=== PATIENT | male | born 1970 | race African-American/Black ===

== ENCOUNTER 2017-02-07 14:02 | Inpatient (IN) | payer OTHER ==
[~2017-02-07] VITALS: Ht 185.4 cm; Wt 68.0 kg
[~2017-02-07 14:02] MED LIST: DIPH25CA83 PO; DOCU-138 PO; HYDR2TAB4 PO; METR500T4 PO; MYL30 PO; ONDA4TAB5 PO; PROT40 PO; ZOLP5TAB2 PO; potassium chloride PO
[2017-02-07 15:58] LABS: CLARITY URINE CLEAR (CLEAR); COLOR URINE YELLOW (YELLOW); GLUCOSE URINE NEGATIVE (NEGATIVE); KETONES URINE NEGATIVE (NEGATIVE); LEUKOCYTE ESTERASE URINE NEGATIVE (NEGATIVE); NITRITE URINE NEGATIVE (NEGATIVE); OCCULT BLOOD URINE 2+ (NEGATIVE); PH URINE 5.5 (4.5-8.0); PROTEIN URINE 1+ (NEGATIVE); SPECIFIC GRAVITY URINE 1.018 (1.005-1.030); UROBILINOGEN URINE 0.2 E.U./dL (0.2-1.0)
[2017-02-07 16:00] LABS: MEAN CORPUSCULAR HEMOGLOBIN 26.1 pg (28.0-32.0); MEAN CORPUSCULAR VOLUME 80.4 fL (80.0-94.0); MEAN PLATELET VOLUME 9.3 fl (7.4-10.4); PLATELET 194 x1000/uL (130-400); RED BLOOD CELL COUNT 4.23 mill/uL (4.7-6.1); RED CELL DISTRIBUTION WIDTH 15.3 % (11.6-14.6)
[2017-02-07 16:04] LABS: CHLORIDE 96 mEq/L (98-107)
[2017-02-07] MEDS ORDERED: MORPHINE SULFATE 4 MG/ML CPJ (NOT FOR IM USE) IV STA (16:07)
[2017-02-07] MEDS ORDERED: ONDANSETRON HCL 4MG/2ML VIAL IV STA (16:07)
[2017-02-07 16:08] LABS: INR 1.1; PARTIAL THROMBOPLASTIN TIME 27.8 sec (23.4-31.0); PROTHROMBIN TIME 11.4 sec (9.4-11.6)
[2017-02-07 16:09] LABS: CARBON DIOXIDE 34 mEq/L (21-32)
[2017-02-07 16:13] LABS: *AMPHETAMINES SCREEN URINE NEGATIVE (NEGATIVE); *BARBITURATES SCREEN URINE NEGATIVE (NEGATIVE); *BENZODIAZEPINES SCREEN URINE NEGATIVE (NEGATIVE); *COCAINE SCREEN URINE NEGATIVE (NEGATIVE); CANNABINOID URINE SCREEN PRESUMTIVE POSITIVE (NEGATIVE); METHADONE URINE SCREEN NEGATIVE (NEGATIVE); OPIATES URINE SCREEN PRESUMTIVE POSITIVE (NEGATIVE); PHENCYCLIDINE URINE SCREEN NEGATIVE (NEGATIVE)
[2017-02-07] MEDS ORDERED: PIPERACILLIN/TAZ 3.375G PREMIX 50 ML IV ONE (16:15)
[2017-02-07] MEDS ORDERED: SODIUM CHLORIDE 0.9% 1000ML BAG (SEPSIS BOLUS) IV ONE (16:15)
[2017-02-07 16:16] LABS: TROPONIN I < 0.02 ng/mL (0.00-0.04)
[2017-02-07] MEDS ORDERED: FENTANYL CITRATE/PF 50MCG/ML 2ML VIAL IV ONE (16:30)
[2017-02-07 16:49] LABS: PLATELET ESTIMATE NORMAL
[2017-02-07] MEDS ORDERED: KCL 20MEQ/100ML PREMIX 100 ML IV ONE (17:30)
[2017-02-07] MEDS ORDERED: IBUPROFEN 600MG TABLET PO ONE (21:45)
[2017-02-07 22:05] VITALS: BP 98/60
[2017-02-08] VITALS: BP 100/56
[2017-02-08] MEDS ORDERED: IPRATROPIUM/ALBUTEROL 0.5-3(2.5)MG/3ML NEB INH PRN (00:30)
[2017-02-08] MEDS ORDERED: ONDANSETRON HCL 4MG/2ML VIAL IV PRN (00:30)
[2017-02-08] MEDS ORDERED: ACETAMINOPHEN 325MG TABLET PO PRN (00:30)
[2017-02-08] MEDS ORDERED: DIPHENHYDRAMINE 50MG/ML VIAL IV PRN (00:30)
[2017-02-08] MEDS ORDERED: SODIUM CHLORIDE 0.9% 1,000 ML IV SCH (01:30)
[2017-02-08] MEDS: HYDROMORPHONE HCL/PF 2MG/ML CPJ IV PRN ×6 (01:37→22:47)
[2017-02-08] MEDS: PIPERACILLIN/TAZ 3.375G PREMIX 50 ML IV SCH ×3 (03:26→22:26)
[2017-02-08 04:00] VITALS: BP 103/62
[2017-02-08] MEDS ORDERED: SODIUM CHLORIDE 0.9% 1000ML BAG (SEPSIS BOLUS) IV ONE (07:00)
[2017-02-08] MEDS ORDERED: SODIUM CHLORIDE 0.9% 500 ML IV ONE (07:00)
[2017-02-08 08:15] VITALS: BP 92/48
[2017-02-08] MEDS: METRONIDAZOLE 500 MG PREMIX 100 ML IV SCH ×2 (09:42→17:07)
[2017-02-08] MEDS: PANTOPRAZOLE SODIUM 40 MG/VIAL IV SCH (09:42)
[2017-02-08] MEDS: SODIUM CHLORIDE 0.9% 1,000 ML IV SCH ×2 (11:30→17:08)
[2017-02-08 12:49] VITALS: BP 90/55
[2017-02-08] MEDS: LEVOFLOXACIN 500MG PREMIX 100 ML IV SCH (14:18)
[2017-02-08] MEDS: DILTIAZEM HCL 30MG TABLET PO SCH ×2 (14:26→22:28)
[2017-02-08 16:47] VITALS: BP 98/64
[2017-02-08 20:00] VITALS: BP 105/67
[2017-02-09] VITALS: BP 106/58
[2017-02-09] MEDS: METRONIDAZOLE 500 MG PREMIX 100 ML IV SCH ×2 (01:49→11:06)
[2017-02-09] MEDS: HYDROMORPHONE HCL/PF 2MG/ML CPJ IV PRN ×5 (02:48→21:04)
[2017-02-09] MEDS: PIPERACILLIN/TAZ 3.375G PREMIX 50 ML IV SCH ×3 (02:48→13:37)
[2017-02-09 04:00] VITALS: BP 101/57
[2017-02-09 06:12] LABS: HEMATOCRIT. 27.3 % (42.0-52.0); HEMOGLOBIN. 8.8 g/dL (14.0-18.0); MEAN CORPUSCULAR HEMOGLOBIN 26.3 pg (28.0-32.0); MEAN CORPUSCULAR VOLUME 81.4 fL (80.0-94.0); MEAN PLATELET VOLUME 10.8 fl (7.4-10.4); PLATELET 118 x1000/uL (130-400); RED BLOOD CELL COUNT 3.35 mill/uL (4.7-6.1)
[2017-02-09] MEDS: DILTIAZEM HCL 30MG TABLET PO SCH ×3 (07:15→22:18)
[2017-02-09] MEDS: SODIUM CHLORIDE 0.9% 1,000 ML IV SCH ×3 (07:16→22:19)
[2017-02-09] MEDS: PANTOPRAZOLE SODIUM 40 MG/VIAL IV SCH (08:36)
[2017-02-09 09:03] VITALS: BP 98/59
[2017-02-09] MEDS: LEVOFLOXACIN 500MG PREMIX 100 ML IV SCH (09:28)
[2017-02-09] MEDS ORDERED: POTASSIUM CHLORIDE INJ 60 MEQ in DEXT 5% WATER 500 ML IV NR (09:30)
[2017-02-09 12:05] VITALS: BP 91/60
[2017-02-09 13:23] LABS: PLATELET ESTIMATE DECREASED
[2017-02-09] MEDS ORDERED: VANCOMYCIN 1500MG in DEXTROSE 5% WATER 250ML IV SCH (14:00)
[2017-02-09 16:32] VITALS: BP 98/62
[2017-02-09] MEDS ORDERED: POTASSIUM CHLORIDE 20MEQ TABLET SR PO NR (18:00)
[2017-02-09] MEDS: MEROPENEM 500 MG in SODIUM CHLORIDE 0.9% 50 ML IV SCH (18:38)
[2017-02-09 20:00] VITALS: BP 111/65
[2017-02-10] VITALS: BP 105/64
[2017-02-10] MEDS: HYDROMORPHONE HCL/PF 2MG/ML CPJ IV PRN ×6 (01:18→21:16)
[2017-02-10] MEDS: MEROPENEM 500 MG in SODIUM CHLORIDE 0.9% 50 ML IV SCH ×3 (02:21→17:19)
[2017-02-10 04:00] VITALS: BP 99/57
[2017-02-10] MEDS: SODIUM CHLORIDE 0.9% 1,000 ML IV SCH ×2 (05:07→15:15)
[2017-02-10] MEDS: DILTIAZEM HCL 30MG TABLET PO SCH (06:00)
[2017-02-10] MEDS ORDERED: VANCOMYCIN 1250MG in DEXTROSE 5% WATER 250ML IV SCH (06:00)
[2017-02-10 06:23] LABS: HEMATOCRIT. 26.4 % (42.0-52.0); HEMOGLOBIN. 8.5 g/dL (14.0-18.0); MEAN CORPUSCULAR HEMOGLOBIN 26.1 pg (28.0-32.0); MEAN CORPUSCULAR VOLUME 81.1 fL (80.0-94.0); MEAN PLATELET VOLUME 10.9 fl (7.4-10.4); PLATELET 133 x1000/uL (130-400); RED BLOOD CELL COUNT 3.25 mill/uL (4.7-6.1); RED CELL DISTRIBUTION WIDTH 15.1 % (11.6-14.6)
[2017-02-10 06:25] LABS: CARBON DIOXIDE 26 mEq/L (21-32); CHLORIDE 106 mEq/L (98-107)
[2017-02-10 07:49] VITALS: BP 87/32
[2017-02-10] MEDS: FAMOTIDINE 20MG/2ML VIAL IV SCH (09:17)
[2017-02-10 12:00] VITALS: BP 89/52
[2017-02-10 12:45] LABS: PLATELET ESTIMATE NORMAL
[2017-02-10] MEDS ORDERED: POTASSIUM CHLORIDE 20MEQ TABLET SR PO NR (13:30)
[2017-02-10 20:00] VITALS: BP 91/51
[2017-02-11] VITALS: BP 112/59
[2017-02-11] MEDS: SODIUM CHLORIDE 0.9% 1,000 ML IV SCH (00:01)
[2017-02-11] MEDS: MEROPENEM 500 MG in SODIUM CHLORIDE 0.9% 50 ML IV SCH ×3 (01:27→17:37)
[2017-02-11] MEDS: HYDROMORPHONE HCL/PF 2MG/ML CPJ IV PRN ×6 (01:27→23:12)
[2017-02-11 04:00] VITALS: BP 91/49
[2017-02-11 06:34] LABS: CARBON DIOXIDE 27 mEq/L (21-32); CHLORIDE 112 mEq/L (98-107)
[2017-02-11 06:34] LABS: HEMOGLOBIN. 8.4 g/dL (14.0-18.0); MEAN CORPUSCULAR HEMOGLOBIN 26.1 pg (28.0-32.0); MEAN CORPUSCULAR VOLUME 81.2 fL (80.0-94.0); PLATELET 197 x1000/uL (130-400); RED CELL DISTRIBUTION WIDTH 15.4 % (11.6-14.6)
[2017-02-11 08:00] VITALS: BP 101/61
[2017-02-11] MEDS: FAMOTIDINE 20MG/2ML VIAL IV SCH ×2 (09:21→20:19)
[2017-02-11 12:00] VITALS: BP 100/51
[2017-02-11 13:37] LABS: PLATELET ESTIMATE NORMAL
[2017-02-11] MEDS: SODIUM CHL 0.45% + KCL 20MEQ/L 1,000 ML IV SCH (13:46)
[2017-02-11 16:04] VITALS: BP 108/73
[2017-02-11 20:00] VITALS: BP 107/80
[2017-02-12] VITALS: BP 103/63
[2017-02-12] MEDS: MEROPENEM 500 MG in SODIUM CHLORIDE 0.9% 50 ML IV SCH ×3 (01:00→17:50)
[2017-02-12] MEDS: HYDROMORPHONE HCL/PF 2MG/ML CPJ IV PRN ×6 (03:04→22:31)
[2017-02-12] MEDS: SODIUM CHL 0.45% + KCL 20MEQ/L 1,000 ML IV SCH (03:04)
[2017-02-12 04:00] VITALS: BP 106/68
[2017-02-12 06:45] LABS: BASOPHILS % 0.8 % (0.0-2.0); EOSINOPHILS % 1.8 % (0.0-5.0); HEMATOCRIT. 25.9 % (42.0-52.0); HEMOGLOBIN. 8.4 g/dL (14.0-18.0); LYMPHOCYTES % 33.4 % (20.0-50.0); MEAN CORPUSCULAR HEMOGLOBIN 26.3 pg (28.0-32.0); MEAN PLATELET VOLUME 9.5 fl (7.4-10.4); MONOCYTES % 10.8 % (2.0-8.0); NEUTROPHILS % 53.2 % (40.0-76.0); PLATELET 227 x1000/uL (130-400); RED CELL DISTRIBUTION WIDTH 15.1 % (11.6-14.6)
[2017-02-12 07:00] LABS: CARBON DIOXIDE 24 mEq/L (21-32); CHLORIDE 114 mEq/L (98-107)
[2017-02-12] MEDS: FAMOTIDINE 20MG/2ML VIAL IV SCH ×2 (10:31→21:15)
[2017-02-12 11:54] VITALS: BP 96/51
[2017-02-12 14:20] VITALS: BP 106/61
[2017-02-12 18:37] VITALS: BP 108/70
[2017-02-12 19:36] VITALS: BP 119/75
[2017-02-13 00:35] VITALS: BP 109/67
[2017-02-13] MEDS: HYDROMORPHONE HCL/PF 2MG/ML CPJ IV PRN ×3 (02:59→10:48)
[2017-02-13] MEDS: MEROPENEM 500 MG in SODIUM CHLORIDE 0.9% 50 ML IV SCH ×2 (02:59→09:35)
[2017-02-13 06:52] LABS: EOSINOPHILS % 2.1 % (0.0-5.0); HEMATOCRIT. 27.3 % (42.0-52.0); HEMOGLOBIN. 8.7 g/dL (14.0-18.0); LYMPHOCYTES % 38.8 % (20.0-50.0); MEAN CORPUSCULAR HEMOGLOBIN 25.8 pg (28.0-32.0); MEAN CORPUSCULAR VOLUME 80.8 fL (80.0-94.0); MONOCYTES % 10.3 % (2.0-8.0); NEUTROPHILS % 47.8 % (40.0-76.0); PLATELET 268 x1000/uL (130-400); RED BLOOD CELL COUNT 3.37 mill/uL (4.7-6.1); RED CELL DISTRIBUTION WIDTH 15.3 % (11.6-14.6)
[2017-02-13 07:25] VITALS: BP 122/74
[2017-02-13 07:46] LABS: CARBON DIOXIDE 23 mEq/L (21-32); CHLORIDE 113 mEq/L (98-107)
[2017-02-13] MEDS ORDERED: LIDOCAINE HCL 1% 20ML VIAL (Pyxis) INJ ONE (08:25)
[2017-02-13] MEDS ORDERED: SODIUM BICARBONATE 4% (2.4MEQ) 5ML VIAL IV ONE (08:26)
[2017-02-13] MEDS: FAMOTIDINE 20MG/2ML VIAL IV SCH (09:38)
[2017-02-13 11:05] VITALS: BP 107/60
[2017-02-13 15:50] VITALS: BP 107/60
== END 2017-02-13 16:40 | disposition home health service (06) | DRG 720 ==
LOC: ER 14:02 → EDBEDREQ 16:13 → 6WST 17:31 → EDBEDREQ 17:34 → ENRESERV 20:31
PROVIDERS: ADMIT Internal Medicine; ATTEND Internal Medicine
PROC: 02HV33Z Insertion of Infusion Device into Superior Vena Cava, Percutaneous Approach (ICD-10-PCS; principal; 2017-02-13)
PROC: B548ZZA Ultrasonography of Superior Vena Cava, Guidance (ICD-10-PCS; 2017-02-13)
PROC: B5181ZA Fluoroscopy of Superior Vena Cava using Low Osmolar Contrast, Guidance (ICD-10-PCS; 2017-02-13)
DX: A41.9 Sepsis, unspecified organism (principal); N17.0 Acute kidney failure with tubular necrosis; E43 Unspecified severe protein-calorie malnutrition; E87.0 Hyperosmolality and hypernatremia; E11.22 Type 2 diabetes mellitus with diabetic chronic kidney disease; F11.20 Opioid dependence, uncomplicated; E87.1 Hypo-osmolality and hyponatremia; E86.0 Dehydration; I47.1 Supraventricular tachycardia; E87.6 Hypokalemia; D63.8 Anemia in other chronic diseases classified elsewhere; G89.4 Chronic pain syndrome; J98.11 Atelectasis; K52.9 Noninfective gastroenteritis and colitis, unspecified; N18.9 Chronic kidney disease, unspecified; Z96.641 Presence of right artificial hip joint; Z93.3 Colostomy status; I25.2 Old myocardial infarction; Z86.711 Personal history of pulmonary embolism; Z86.73 Personal history of transient ischemic attack (TIA), and cerebral infarction without residual deficits; Z87.891 Personal history of nicotine dependence; Z90.49 Acquired absence of other specified parts of digestive tract; Z68.1 Body mass index [BMI] 19.9 or less, adult; Z91.041 Radiographic dye allergy status; Z79.899 Other long term (current) drug therapy
CPT/HCPCS: 36415; 36569; 71010; 74176; 76937; 77001; 80048; 80053; 80076; 80305; 81001; 83605; 83690; 83735; 83880; 84484; 85025; 85610; 85730; 86850; 86900; 87040; 87077; 87086; 87186; 87493; 93005; 93306; 96361; 96365; 96366; 96367; 96375; 99291; C1725; C1893; C9113; J1170; J1200; J1956; J2185; J2405; J2543; J3010; J3370; J3480; J3490; J7030; J7050; J7060

== ENCOUNTER 2017-06-14 17:47 | Emergency (ER) | payer OTHER ==
[~2017-06-14] VITALS: Ht 185.4 cm; Wt 72.0 kg
[2017-06-14 17:58] VITALS: BP 131/75
== END 2017-06-14 19:08 | disposition home or self-care (01) ==
LOC: ER 18:34
DX: T82.898A Other specified complication of vascular prosthetic devices, implants and grafts, initial encounter (principal); F12.10 Cannabis abuse, uncomplicated; Z96.649 Presence of unspecified artificial hip joint; Z90.49 Acquired absence of other specified parts of digestive tract; Z93.3 Colostomy status; Z98.890 Other specified postprocedural states; Z91.018 Allergy to other foods; Y92.89 Other specified places as the place of occurrence of the external cause
CPT/HCPCS: 99281

== ENCOUNTER 2018-02-05 11:00 | Emergency (ER) | payer OTHER ==
[~2018-02-05] VITALS: Ht 185.4 cm; Wt 82.0 kg
[2018-02-05 13:05] LABS: CLARITY URINE CLEAR (CLEAR); COLOR URINE YELLOW (YELLOW); KETONES URINE TRACE (NEGATIVE); LEUKOCYTE ESTERASE URINE TRACE (NEGATIVE); NITRITE URINE NEGATIVE (NEGATIVE); OCCULT BLOOD URINE 2+ (NEGATIVE); PH URINE 6.5 (4.5-8.0); PROTEIN URINE 2+ (NEGATIVE); SPECIFIC GRAVITY URINE 1.021 (1.005-1.030); UROBILINOGEN URINE 0.2 E.U./dL (0.2-1.0)
[2018-02-05 13:36] LABS: BASOPHILS % 0.9 % (0.0-2.0); HEMATOCRIT. 35.5 % (42.0-52.0); LYMPHOCYTES % 30.8 % (20.0-50.0); MEAN CORPUSCULAR HEMOGLOBIN 27.2 pg (28.0-32.0); MEAN CORPUSCULAR VOLUME 80.1 fL (80.0-94.0); MEAN PLATELET VOLUME 8.3 fl (7.4-10.4); MONOCYTES % 7.3 % (2.0-8.0); PLATELET 309 x1000/uL (130-400); RED BLOOD CELL COUNT 4.43 mill/uL (4.7-6.1)
[2018-02-05 13:41] LABS: CHLORIDE 102 mEq/L (98-107)
[2018-02-05 14:51] VITALS: BP 129/80
== END 2018-02-05 14:55 | disposition home or self-care (01) ==
LOC: ER 13:52
DX: R31.9 Hematuria, unspecified (principal); N39.0 Urinary tract infection, site not specified; F12.10 Cannabis abuse, uncomplicated; Z90.49 Acquired absence of other specified parts of digestive tract; Z98.890 Other specified postprocedural states; Z96.641 Presence of right artificial hip joint; Z88.9 Allergy status to unspecified drugs, medicaments and biological substances; Z91.018 Allergy to other foods; Z79.899 Other long term (current) drug therapy
CPT/HCPCS: 36415; 80053; 81003; 83690; 85025; 85610; 99284

== ENCOUNTER 2018-09-03 16:16 | Inpatient (IN) | payer MEDICAID, OTHER ==
[~2018-09-03] VITALS: Ht 185.4 cm; Wt 88.9 kg
[~2018-09-03 16:16] MED LIST changes: +METR-218 PO; -METR500T4 PO
[2018-09-03] MEDS ORDERED: SODIUM CHLORIDE 0.9% 1,000 ML IV ONE ×2 (17:50→20:00)
[2018-09-03 18:34] LABS: BASOPHILS % 0.6 % (0.0-2.0); EOSINOPHILS % 0.8 % (0.0-5.0); HEMATOCRIT. 32.5 % (42.0-52.0); HEMOGLOBIN. 10.5 g/dL (14.0-18.0); LYMPHOCYTES % 25.4 % (20.0-50.0); MEAN CORPUSCULAR HEMOGLOBIN 25.2 pg (28.0-32.0); MEAN CORPUSCULAR VOLUME 77.7 fL (80.0-94.0); MEAN PLATELET VOLUME 7.8 fl (7.4-10.4); MONOCYTES % 6.9 % (2.0-8.0); NEUTROPHILS % 66.3 % (40.0-76.0); PLATELET 277 x1000/uL (130-400); RED BLOOD CELL COUNT 4.19 mill/uL (4.7-6.1)
[2018-09-03 18:42] LABS: CHLORIDE 106 mEq/L (98-107); PROTHROMBIN TIME 10.4 sec (9.6-11.0)
[2018-09-03 18:51] LABS: CLARITY URINE CLOUDY (CLEAR); COLOR URINE DARK YELLOW (YELLOW); KETONES URINE TRACE (NEGATIVE); LEUKOCYTE ESTERASE URINE TRACE (NEGATIVE); NITRITE URINE NEGATIVE (NEGATIVE); OCCULT BLOOD URINE 3+ (NEGATIVE); PROTEIN URINE 3+ (NEGATIVE); SPECIFIC GRAVITY URINE 1.019 (1.005-1.030)
[2018-09-03] MEDS ORDERED: METRONIDAZOLE 500 MG PREMIX 100 ML IV ONE (20:00)
[2018-09-03] MEDS ORDERED: MORPHINE SULFATE 4 MG/ML CPJ (NOT FOR IM USE) IV ONE (20:00)
[2018-09-03] MEDS ORDERED: CEFTRIAXONE 1 G PREMIX 50 ML IV ONE (20:00)
[2018-09-03 22:00] VITALS: BP 125/80
[2018-09-03 22:30] VITALS: BP 125/80
[2018-09-03] MEDS ORDERED: ONDANSETRON HCL 4MG/2ML INJ IV PRN (23:30)
[2018-09-04] VITALS: BP 125/80
[2018-09-04] MEDS: MORPHINE SULFATE 4 MG/ML CPJ (NOT FOR IM USE) IV PRN ×6 (00:31→22:20)
[2018-09-04] MEDS: DEXT 5%/0.45% NACL KCL 20MEQ/L 1,000 ML IV SCH ×2 (03:10→22:08)
[2018-09-04 04:00] VITALS: BP 103/59
[2018-09-04 08:00] VITALS: BP 111/73
[2018-09-04 12:00] VITALS: BP 111/70
[2018-09-04 16:00] VITALS: BP 112/69
[2018-09-04 18:26] LABS: PHOSPHORUS 3.5 mg/dL (2.5-4.9)
[2018-09-04 20:00] VITALS: BP 133/85
[2018-09-04] MEDS ORDERED: CEFTRIAXONE 1 G PREMIX 50 ML IV SCH (20:00)
[2018-09-05] VITALS: BP 114/73
[2018-09-05] MEDS: MORPHINE SULFATE 4 MG/ML CPJ (NOT FOR IM USE) IV PRN ×3 (03:11→15:49)
[2018-09-05 06:00] VITALS: BP 122/74
[2018-09-05 06:53] LABS: BASOPHILS % 0.4 % (0.0-2.0); HEMATOCRIT. 31.8 % (42.0-52.0); HEMOGLOBIN. 10.3 g/dL (14.0-18.0); LYMPHOCYTES % 28.3 % (20.0-50.0); MEAN CORPUSCULAR HEMOGLOBIN 25.1 pg (28.0-32.0); MEAN CORPUSCULAR VOLUME 77.4 fL (80.0-94.0); MEAN PLATELET VOLUME 7.9 fl (7.4-10.4); NEUTROPHILS % 56.3 % (40.0-76.0); PLATELET 293 x1000/uL (130-400); RED BLOOD CELL COUNT 4.11 mill/uL (4.7-6.1); RED CELL DISTRIBUTION WIDTH 17.6 % (11.6-14.6)
[2018-09-05 07:19] LABS: CHLORIDE 107 mEq/L (98-107)
[2018-09-05] MEDS ORDERED: PANTOPRAZOLE SODIUM 40 MG/VIAL IV SCH (09:00)
[2018-09-05] MEDS ORDERED: LIDOCAINE HCL 1% 20ML VIAL (Pyxis) INJ ONE (10:27)
[2018-09-05 12:00] VITALS: BP 110/72
[2018-09-05 15:55] VITALS: BP 112/76
[2018-09-05 17:54] VITALS: BP 112/76
== END 2018-09-05 18:16 | disposition home or self-care (01) | DRG 720 ==
LOC: ER 16:16 → 6EST 19:46 → EDBEDREQ 20:03 → ENRESERV 20:59
PROVIDERS: ADMIT Internal Medicine; ATTEND Internal Medicine
PROC: 02HV33Z Insertion of Infusion Device into Superior Vena Cava, Percutaneous Approach (ICD-10-PCS; principal; 2018-09-05)
PROC: B5181ZA Fluoroscopy of Superior Vena Cava using Low Osmolar Contrast, Guidance (ICD-10-PCS; 2018-09-05)
PROC: B548ZZA Ultrasonography of Superior Vena Cava, Guidance (ICD-10-PCS; 2018-09-05)
PROC: 02PYX3Z Removal of Infusion Device from Great Vessel, External Approach (ICD-10-PCS; 2018-09-05)
DX: A41.9 Sepsis, unspecified organism (principal); E43 Unspecified severe protein-calorie malnutrition; K63.2 Fistula of intestine; K91.2 Postsurgical malabsorption, not elsewhere classified; T82.898A Other specified complication of vascular prosthetic devices, implants and grafts, initial encounter; E86.0 Dehydration; D50.9 Iron deficiency anemia, unspecified; N39.0 Urinary tract infection, site not specified; Z96.649 Presence of unspecified artificial hip joint; F11.20 Opioid dependence, uncomplicated; K63.89 Other specified diseases of intestine; Y83.8 Other surgical procedures as the cause of abnormal reaction of the patient, or of later complication, without mention of misadventure at the time of the procedure; N43.3 Hydrocele, unspecified; G89.4 Chronic pain syndrome; Z86.711 Personal history of pulmonary embolism; Z86.718 Personal history of other venous thrombosis and embolism; Z90.49 Acquired absence of other specified parts of digestive tract; Z93.3 Colostomy status; Z91.041 Radiographic dye allergy status; Z91.018 Allergy to other foods; Z79.899 Other long term (current) drug therapy; Z87.828 Personal history of other (healed) physical injury and trauma; Z68.25 Body mass index [BMI] 25.0-25.9, adult; Y92.89 Other specified places as the place of occurrence of the external cause
CPT/HCPCS: 36415; 36569; 36573; 74176; 76870; 80048; 83605; 83735; 84100; 86850; 86900; 93970; 93976; 96361; 96365; 96367; 96375; 99285; C1725; C9113; J0696; J2270; J2405; J3490; J7030

== ENCOUNTER 2020-12-08 15:26 | Inpatient (IN) | payer MEDICAID, OTHER ==
[~2020-12-08] VITALS: Ht 185.4 cm; Wt 67.6 kg
[~2020-12-08 15:26] MED LIST changes: +APIX5TAB MT; -DIPH25CA83 PO; -DOCU-138 PO; -HYDR2TAB4 PO; +LIPA1CAP18 MT; -METR-218 PO; -MYL30 PO; -PROT40 PO; -ZOLP5TAB2 PO; -potassium chloride PO
[2020-12-08] MEDS ORDERED: VANCOMYCIN 1 G PREMIX 200 ML IV ONE (19:45)
[2020-12-08] MEDS ORDERED: ACETAMINOPHEN 325MG TABLET PO ONE (19:45)
[2020-12-08] MEDS ORDERED: SODIUM CHLORIDE 0.9% 1000ML BAG (SEPSIS BOLUS) IV ONE (19:45)
[2020-12-08] MEDS ORDERED: PIPERACILLIN/TAZ 3.375G PREMIX 50 ML IV ONE (19:45)
[2020-12-08 20:44] LABS: BASOPHILS % 0.3 % (0.0-2.0); EOSINOPHILS % 0.1 % (0.0-5.0); HEMATOCRIT. 35.8 % (42.0-52.0); HEMOGLOBIN. 11.7 g/dL (14.0-18.0); LYMPHOCYTES % 11.4 % (20.0-50.0); MEAN CORPUSCULAR HEMOGLOBIN 24.4 pg (28.0-32.0); MEAN CORPUSCULAR VOLUME 74.5 fL (80.0-94.0); MEAN PLATELET VOLUME 8.7 fl (7.4-10.4); MONOCYTES % 4.7 % (2.0-8.0); NEUTROPHILS % 83.5 % (40.0-76.0); PLATELET 166 x1000/uL (130-400); RED BLOOD CELL COUNT 4.81 mill/uL (4.7-6.1); RED CELL DISTRIBUTION WIDTH 18.3 % (11.6-14.6)
[2020-12-08 20:48] LABS: CHLORIDE 99 mEq/L (98-107)
[2020-12-08] MEDS ORDERED: METRONIDAZOLE 500 MG PREMIX 100 ML IV ONE (21:30)
[2020-12-08 23:44] LABS: CLARITY URINE CLEAR (CLEAR); COLOR URINE DARK YELLOW (YELLOW); KETONES URINE 1+ (NEGATIVE); LEUKOCYTE ESTERASE URINE TRACE (NEGATIVE); NITRITE URINE NEGATIVE (NEGATIVE); OCCULT BLOOD URINE NEGATIVE (NEGATIVE); PH URINE 5.5 (4.5-8.0); PROTEIN URINE 2+ (NEGATIVE); SPECIFIC GRAVITY URINE 1.024 (1.005-1.030)
[2020-12-09] MEDS ORDERED: NALOXONE HCL 0.4MG/ML VIAL IV PRN (04:15)
[2020-12-09] MEDS: HYDROCODONE/ACETAMINOPHEN 5/325MG TABLET PO PRN ×2 (04:26→08:34)
[2020-12-09] MEDS ORDERED: ACETAMINOPHEN 325MG TABLET PO PRN (08:45)
[2020-12-09] MEDS ORDERED: DIPHENHYDRAMINE 50MG/ML VIAL IV PRN (08:45)
[2020-12-09] MEDS ORDERED: CLONIDINE 0.1MG TABLET PO PRN (08:45)
[2020-12-09] MEDS ORDERED: MORPHINE SULFATE 2 MG/ML CPJ (NOT FOR IM USE) IV PRN (08:45)
[2020-12-09 11:00] VITALS: BP 113/69
[2020-12-09] MEDS ORDERED: HYDR-4009 MT (11:38)
[2020-12-09] MEDS ORDERED: TRAM50TA94 MT (11:38)
[2020-12-09 12:00] VITALS: BP 113/69
[2020-12-09] MEDS: SODIUM CHLORIDE 0.9% 1,000 ML IV SCH (12:38)
[2020-12-09] MEDS: PIPERACILLIN/TAZOBACTAM 3.375 G in DEXTROSE 5% WATER 50 ML IV SCH ×2 (12:38→18:06)
[2020-12-09] MEDS: METRONIDAZOLE 500 MG PREMIX 100 ML IV SCH ×2 (12:39→21:05)
[2020-12-09] MEDS: VANCOMYCIN 1,250 MG in DEXT 5% WATER 250 ML IV SCH (12:43)
[2020-12-09] MEDS: HYDROMORPHONE HCL/PF 2MG/ML CPJ IV PRN ×2 (12:43→18:49)
[2020-12-09 16:00] VITALS: BP 101/61
[2020-12-09 17:58] LABS: FOLIC ACID (FOLATE) SERUM >20 ng/mL ng/mL (>5.38)
[2020-12-09 18:10] LABS: VITAMIN B12 SERUM 596 pg/mL (211-911)
[2020-12-09 18:41] LABS: TOTAL IRON BINDING CAPACITY 348 ug/dL (250-450)
[2020-12-09 18:55] LABS: FERRITIN 80 ng/mL (22-322)
[2020-12-09] MEDS ORDERED: POTASSIUM CHLORIDE 20MEQ TABLET SR PO NR (19:30)
[2020-12-09 20:00] VITALS: BP 114/69
[2020-12-09 22:13] LABS: *COCAINE SCREEN URINE NEGATIVE (NEGATIVE); METHADONE URINE SCREEN NEGATIVE (NEGATIVE)
[2020-12-09 22:14] LABS: *AMPHETAMINES SCREEN URINE NEGATIVE (NEGATIVE); *BARBITURATES SCREEN URINE NEGATIVE (NEGATIVE); *BENZODIAZEPINES SCREEN URINE NEGATIVE (NEGATIVE); CANNABINOID URINE SCREEN PRESUMTIVE POSITIVE (NEGATIVE); OPIATES URINE SCREEN PRESUMTIVE POSITIVE (NEGATIVE); PHENCYCLIDINE URINE SCREEN NEGATIVE (NEGATIVE)
[2020-12-10] VITALS: BP 106/56
[2020-12-10] MEDS: VANCOMYCIN 1,250 MG in DEXT 5% WATER 250 ML IV SCH (01:05)
[2020-12-10] MEDS: HYDROMORPHONE HCL/PF 2MG/ML CPJ IV PRN ×4 (01:06→21:05)
[2020-12-10] MEDS: METRONIDAZOLE 500 MG PREMIX 100 ML IV SCH ×3 (03:17→21:04)
[2020-12-10 04:00] VITALS: BP 113/62
[2020-12-10] MEDS: PIPERACILLIN/TAZOBACTAM 3.375 G in DEXTROSE 5% WATER 50 ML IV SCH ×3 (04:42→20:15)
[2020-12-10 08:00] VITALS: BP 121/68
[2020-12-10 08:03] LABS: HEMATOCRIT. 35.1 % (42.0-52.0); HEMOGLOBIN. 11.3 g/dL (14.0-18.0); MEAN CORPUSCULAR HEMOGLOBIN 24.4 pg (28.0-32.0); MEAN CORPUSCULAR VOLUME 75.8 fL (80.0-94.0); MEAN PLATELET VOLUME 8.7 fl (7.4-10.4); PLATELET 164 x1000/uL (130-400); RED BLOOD CELL COUNT 4.63 mill/uL (4.7-6.1); RED CELL DISTRIBUTION WIDTH 18.8 % (11.6-14.6)
[2020-12-10 08:05] LABS: CHLORIDE 106 mEq/L (98-107)
[2020-12-10 08:12] LABS: LDL CHOLESTEROL 66 mg/dL (5-100)
[2020-12-10 08:13] LABS: HDL CHOLESTEROL 15 mg/dL (40-59)
[2020-12-10 08:26] LABS: HEPATITIS B SURFACE ANTIGEN NEGATIVE
[2020-12-10 08:55] LABS: HEPATITIS A AB IGM NEGATIVE (NEGATIVE)
[2020-12-10 12:00] VITALS: BP 118/71
[2020-12-10] MEDS ORDERED: DIATR MEGLU/DIATRIZOATE SOLN 120ML ONE (13:46)
[2020-12-10 15:19] LABS: PLATELET ESTIMATE NORMAL
[2020-12-10] MEDS: VANCOMYCIN 1 G PREMIX 200 ML IV SCH (15:46)
[2020-12-10 16:00] VITALS: BP 111/70
[2020-12-10 20:00] VITALS: BP 108/78
[2020-12-11] VITALS: BP 115/73
[2020-12-11] MEDS: SODIUM CHLORIDE 0.9% 1,000 ML IV SCH ×3 (02:16→21:27)
[2020-12-11] MEDS: PIPERACILLIN/TAZOBACTAM 3.375 G in DEXTROSE 5% WATER 50 ML IV SCH ×2 (02:16→09:43)
[2020-12-11] MEDS: METRONIDAZOLE 500 MG PREMIX 100 ML IV SCH ×3 (02:17→17:18)
[2020-12-11] MEDS: HYDROMORPHONE HCL/PF 2MG/ML CPJ IV PRN ×4 (03:07→23:42)
[2020-12-11 04:00] VITALS: BP 108/58
[2020-12-11] MEDS: VANCOMYCIN 1 G PREMIX 200 ML IV SCH (05:50)
[2020-12-11 07:23] LABS: HEMOGLOBIN. 10.1 g/dL (14.0-18.0); MEAN CORPUSCULAR HEMOGLOBIN 24.1 pg (28.0-32.0); MEAN CORPUSCULAR VOLUME 74.2 fL (80.0-94.0); MEAN PLATELET VOLUME 8.5 fl (7.4-10.4); PLATELET 170 x1000/uL (130-400); RED BLOOD CELL COUNT 4.18 mill/uL (4.7-6.1); RED CELL DISTRIBUTION WIDTH 18.6 % (11.6-14.6)
[2020-12-11 08:00] VITALS: BP 106/61
[2020-12-11] MEDS ORDERED: POTASSIUM CHLORIDE 20MEQ/PACKET PO SCH (09:30)
[2020-12-11 12:00] VITALS: BP 111/75
[2020-12-11 14:46] LABS: PLATELET ESTIMATE NORMAL
[2020-12-11 16:00] VITALS: BP 113/65
[2020-12-11] MEDS: IRON SUCROSE COMPLEX 100 MG/5 ML ML IV SCH (17:18)
[2020-12-11] MEDS ORDERED: PIPERACILLIN/TAZOBACTAM 2.25 G in DEXTROSE 5% WATER 50 ML IV SCH (18:00)
[2020-12-11 19:02] LABS: CREATINE KINASE 21 IU/L (39-308)
[2020-12-11 20:00] VITALS: BP 105/66
[2020-12-11] MEDS: CEFEPIME 1,000 MG in DEXTROSE 5% WATER 50 ML IV SCH (20:50)
[2020-12-12] VITALS: BP 114/69
[2020-12-12] MEDS: METRONIDAZOLE 500 MG PREMIX 100 ML IV SCH ×3 (02:47→17:09)
[2020-12-12 03:54] VITALS: BP 118/73
[2020-12-12] MEDS: SODIUM CHLORIDE 0.9% 1,000 ML IV SCH ×3 (06:24→23:54)
[2020-12-12 08:00] VITALS: BP 101/63
[2020-12-12 08:06] LABS: HEMATOCRIT. 31.4 % (42.0-52.0); HEMOGLOBIN. 9.8 g/dL (14.0-18.0); MEAN CORPUSCULAR VOLUME 76.7 fL (80.0-94.0); MEAN PLATELET VOLUME 8.4 fl (7.4-10.4); PLATELET 179 x1000/uL (130-400); RED BLOOD CELL COUNT 4.09 mill/uL (4.7-6.1); RED CELL DISTRIBUTION WIDTH 18.6 % (11.6-14.6)
[2020-12-12] MEDS: HYDROMORPHONE HCL/PF 2MG/ML CPJ IV PRN ×3 (09:28→23:52)
[2020-12-12] MEDS: POTASSIUM CHLORIDE 20MEQ TABLET SR PO SCH ×3 (11:45→12:09)
[2020-12-12 12:00] VITALS: BP 106/59
[2020-12-12 16:00] VITALS: BP 116/70
[2020-12-12] MEDS: IRON SUCROSE COMPLEX 100 MG/5 ML ML IV SCH (17:09)
[2020-12-12] MEDS: CEFEPIME 1,000 MG in DEXTROSE 5% WATER 50 ML IV SCH (18:33)
[2020-12-12 20:00] VITALS: BP 119/67
[2020-12-13] VITALS: BP 124/71
[2020-12-13] MEDS: METRONIDAZOLE 500 MG PREMIX 100 ML IV SCH ×3 (02:09→18:02)
[2020-12-13 04:00] VITALS: BP 108/63
[2020-12-13 06:30] LABS: BASOPHILS % 0.6 % (0.0-2.0); EOSINOPHILS % 1.9 % (0.0-5.0); HEMATOCRIT. 31.6 % (42.0-52.0); HEMOGLOBIN. 10.3 g/dL (14.0-18.0); LYMPHOCYTES % 24.3 % (20.0-50.0); MEAN CORPUSCULAR HEMOGLOBIN 24.6 pg (28.0-32.0); MEAN CORPUSCULAR VOLUME 75.7 fL (80.0-94.0); MEAN PLATELET VOLUME 8.3 fl (7.4-10.4); MONOCYTES % 13.8 % (2.0-8.0); NEUTROPHILS % 59.4 % (40.0-76.0); PLATELET 213 x1000/uL (130-400); RED BLOOD CELL COUNT 4.17 mill/uL (4.7-6.1); RED CELL DISTRIBUTION WIDTH 18.6 % (11.6-14.6)
[2020-12-13 08:00] VITALS: BP 112/78
[2020-12-13] MEDS: HYDROMORPHONE HCL/PF 2MG/ML CPJ IV PRN ×3 (08:43→21:54)
[2020-12-13 10:26] LABS: PHOSPHORUS 3.3 mg/dL (2.5-4.9)
[2020-12-13 12:00] VITALS: BP 108/68
[2020-12-13] MEDS: SODIUM CHLORIDE 0.9% 1,000 ML IV SCH (12:50)
[2020-12-13] MEDS: IRON SUCROSE COMPLEX 100 MG/5 ML ML IV SCH (15:40)
[2020-12-13 16:00] VITALS: BP 114/73
[2020-12-13] MEDS: CEFEPIME 1,000 MG in DEXTROSE 5% WATER 50 ML IV SCH (18:02)
[2020-12-13 20:00] VITALS: BP 121/72
[2020-12-13 21:44] LABS: PLATELET ESTIMATE NORMAL
[2020-12-14] VITALS: BP 114/69
[2020-12-14] MEDS: FAT EMULSIONS 500 ML IV SCH
[2020-12-14] MEDS: METRONIDAZOLE 500 MG PREMIX 100 ML IV SCH ×2 (02:07→09:22)
[2020-12-14 04:00] VITALS: BP 122/71
[2020-12-14] MEDS: HYDROMORPHONE HCL/PF 2MG/ML CPJ IV PRN ×3 (04:55→21:12)
[2020-12-14] MEDS: BLOOD SUGAR DIAGNOSTIC STRIP TEST SCH ×4 (06:00→18:00)
[2020-12-14 06:58] LABS: HEMATOCRIT. 34.7 % (42.0-52.0); HEMOGLOBIN. 11.3 g/dL (14.0-18.0); MEAN CORPUSCULAR HEMOGLOBIN 24.3 pg (28.0-32.0); MEAN CORPUSCULAR VOLUME 74.5 fL (80.0-94.0); PLATELET 218 x1000/uL (130-400); RED BLOOD CELL COUNT 4.66 mill/uL (4.7-6.1); RED CELL DISTRIBUTION WIDTH 18.5 % (11.6-14.6)
[2020-12-14 08:00] VITALS: BP 101/60
[2020-12-14] MEDS ORDERED: SODIUM CHLORIDE 0.45% 1,000 ML IV SCH (10:00)
[2020-12-14 16:00] VITALS: BP 105/71
[2020-12-14 20:00] VITALS: BP 105/64
[2020-12-14 20:45] LABS: PLATELET ESTIMATE NORMAL
[2020-12-14] MEDS: TOTAL PARENTERAL NUTRITION 2,000 ML IV SCH ×2 (23:03)
[2020-12-15] VITALS: BP 125/75
[2020-12-15 04:00] VITALS: BP 108/66
[2020-12-15] MEDS: BLOOD SUGAR DIAGNOSTIC STRIP TEST SCH ×5 (06:00→16:52)
[2020-12-15] MEDS: HYDROMORPHONE HCL/PF 2MG/ML CPJ IV PRN ×3 (06:19→20:49)
[2020-12-15 07:30] LABS: BASOPHILS % 0.6 % (0.0-2.0); EOSINOPHILS % 2.8 % (0.0-5.0); HEMATOCRIT. 30.8 % (42.0-52.0); HEMOGLOBIN. 10.1 g/dL (14.0-18.0); LYMPHOCYTES % 19.4 % (20.0-50.0); MEAN CORPUSCULAR HEMOGLOBIN 24.3 pg (28.0-32.0); MEAN CORPUSCULAR VOLUME 74.4 fL (80.0-94.0); MEAN PLATELET VOLUME 8.2 fl (7.4-10.4); MONOCYTES % 11.4 % (2.0-8.0); NEUTROPHILS % 65.8 % (40.0-76.0); PLATELET 226 x1000/uL (130-400); RED BLOOD CELL COUNT 4.15 mill/uL (4.7-6.1); RED CELL DISTRIBUTION WIDTH 18.6 % (11.6-14.6)
[2020-12-15 07:32] LABS: PHOSPHORUS 2.4 mg/dL (2.5-4.9)
[2020-12-15 08:00] VITALS: BP 118/74
[2020-12-15 12:00] VITALS: BP 114/68
[2020-12-15] MEDS ORDERED: POTASSIUM PHOS,M-BASIC-D-BASIC 20 MMOL in DEXT 5% WATER 243.3333 ML IV SCH (13:00)
[2020-12-15] MEDS ORDERED: MAGNESIUM 2 G PREMIX 50 ML IV SCH (13:00)
[2020-12-15 16:00] VITALS: BP 123/83
[2020-12-15 20:00] VITALS: BP 124/79
[2020-12-15] MEDS: ONDANSETRON HCL 4MG/2ML INJ IV PRN (20:49)
[2020-12-15] MEDS: TOTAL PARENTERAL NUTRITION 2,000 ML IV SCH (21:46)
[2020-12-16] VITALS: BP 126/77
[2020-12-16 04:00] VITALS: BP 119/73
[2020-12-16] MEDS: HYDROMORPHONE HCL/PF 2MG/ML CPJ IV PRN ×3 (04:04→17:41)
[2020-12-16] MEDS: BLOOD SUGAR DIAGNOSTIC STRIP TEST SCH ×5 (05:14→23:30)
[2020-12-16 08:00] VITALS: BP 112/68
[2020-12-16 10:49] LABS: HEMATOCRIT. 29.8 % (42.0-52.0); MEAN CORPUSCULAR HEMOGLOBIN 24.9 pg (28.0-32.0); MEAN CORPUSCULAR VOLUME 74.3 fL (80.0-94.0); MEAN PLATELET VOLUME 7.8 fl (7.4-10.4); PLATELET 259 x1000/uL (130-400); RED BLOOD CELL COUNT 4.01 mill/uL (4.7-6.1); RED CELL DISTRIBUTION WIDTH 18.9 % (11.6-14.6)
[2020-12-16] MEDS: ONDANSETRON HCL 4MG/2ML INJ IV PRN ×2 (10:53→17:42)
[2020-12-16 11:15] LABS: PHOSPHORUS 3.2 mg/dL (2.5-4.9)
[2020-12-16 12:00] VITALS: BP 118/73
[2020-12-16 16:00] VITALS: BP 122/76
[2020-12-16 19:28] LABS: PLATELET ESTIMATE NORMAL
[2020-12-16 20:00] VITALS: BP 119/78
[2020-12-16] MEDS: FAT EMULSIONS 500 ML IV SCH (21:36)
[2020-12-16] MEDS: TOTAL PARENTERAL NUTRITION 2,000 ML IV SCH (21:38)
[2020-12-16] MEDS ORDERED: NALOXONE HCL 0.4MG/ML VIAL IV PRN (23:15)
[2020-12-17] VITALS: BP 126/75
[2020-12-17] MEDS: HYDROMORPHONE HCL/PF 2MG/ML CPJ IV PRN ×4 (02:21→23:33)
[2020-12-17] MEDS: ONDANSETRON HCL 4MG/2ML INJ IV PRN ×3 (02:21→17:22)
[2020-12-17 04:00] VITALS: BP 124/79
[2020-12-17] MEDS: BLOOD SUGAR DIAGNOSTIC STRIP TEST SCH ×4 (05:16→23:13)
[2020-12-17 08:00] VITALS: BP 120/77
[2020-12-17 12:00] VITALS: BP 111/68
[2020-12-17 16:00] VITALS: BP 117/76
[2020-12-17 20:00] VITALS: BP 124/68
[2020-12-17] MEDS: TOTAL PARENTERAL NUTRITION 2,000 ML IV SCH (22:05)
[2020-12-18] VITALS: BP 130/71
[2020-12-18 04:00] VITALS: BP 126/76
[2020-12-18] MEDS: HYDROMORPHONE HCL/PF 2MG/ML CPJ IV PRN ×3 (05:45→18:35)
[2020-12-18] MEDS: BLOOD SUGAR DIAGNOSTIC STRIP TEST SCH ×3 (06:00→18:00)
[2020-12-18 07:37] LABS: BASOPHILS % 0.2 % (0.0-2.0); EOSINOPHILS % 1.6 % (0.0-5.0); HEMATOCRIT. 35.5 % (42.0-52.0); HEMOGLOBIN. 11.5 g/dL (14.0-18.0); LYMPHOCYTES % 22.5 % (20.0-50.0); MEAN CORPUSCULAR HEMOGLOBIN 24.2 pg (28.0-32.0); MEAN CORPUSCULAR VOLUME 74.5 fL (80.0-94.0); MEAN PLATELET VOLUME 8.2 fl (7.4-10.4); MONOCYTES % 12.8 % (2.0-8.0); NEUTROPHILS % 62.9 % (40.0-76.0); PLATELET 298 x1000/uL (130-400); RED BLOOD CELL COUNT 4.76 mill/uL (4.7-6.1); RED CELL DISTRIBUTION WIDTH 19.2 % (11.6-14.6)
[2020-12-18 08:00] VITALS: BP 116/72
[2020-12-18 12:00] VITALS: BP 122/68
[2020-12-18 16:00] VITALS: BP 119/88
[2020-12-18 20:00] VITALS: BP 117/72
[2020-12-18] MEDS: TOTAL PARENTERAL NUTRITION 2,000 ML IV SCH (21:01)
[2020-12-19] VITALS: BP 130/71
[2020-12-19] MEDS: HYDROMORPHONE HCL/PF 2MG/ML CPJ IV PRN ×4 (00:50→20:09)
[2020-12-19 04:00] VITALS: BP 126/72
[2020-12-19] MEDS: BLOOD SUGAR DIAGNOSTIC STRIP TEST SCH ×4 (05:18→18:00)
[2020-12-19 07:05] LABS: BASOPHILS % 0.4 % (0.0-2.0); EOSINOPHILS % 2.1 % (0.0-5.0); HEMATOCRIT. 32.1 % (42.0-52.0); HEMOGLOBIN. 10.7 g/dL (14.0-18.0); LYMPHOCYTES % 22.3 % (20.0-50.0); MEAN CORPUSCULAR HEMOGLOBIN 24.5 pg (28.0-32.0); MEAN CORPUSCULAR VOLUME 73.8 fL (80.0-94.0); NEUTROPHILS % 63.2 % (40.0-76.0); PLATELET 315 x1000/uL (130-400); RED BLOOD CELL COUNT 4.34 mill/uL (4.7-6.1); RED CELL DISTRIBUTION WIDTH 18.3 % (11.6-14.6)
[2020-12-19 08:00] VITALS: BP 125/76
[2020-12-19 12:00] VITALS: BP 131/71
[2020-12-19 16:00] VITALS: BP 117/77
[2020-12-19 20:00] VITALS: BP 122/78
[2020-12-19] MEDS: TOTAL PARENTERAL NUTRITION 2,000 ML IV SCH (21:54)
[2020-12-20] VITALS: BP 126/74
[2020-12-20 04:00] VITALS: BP 110/63
[2020-12-20] MEDS: HYDROMORPHONE HCL/PF 2MG/ML CPJ IV PRN ×3 (04:54→22:02)
[2020-12-20] MEDS: BLOOD SUGAR DIAGNOSTIC STRIP TEST SCH ×4 (05:36→17:57)
[2020-12-20 06:59] LABS: BASOPHILS % 0.4 % (0.0-2.0); EOSINOPHILS % 2.5 % (0.0-5.0); HEMATOCRIT. 34.7 % (42.0-52.0); HEMOGLOBIN. 11.2 g/dL (14.0-18.0); LYMPHOCYTES % 24.3 % (20.0-50.0); MEAN CORPUSCULAR HEMOGLOBIN 24.4 pg (28.0-32.0); MEAN CORPUSCULAR VOLUME 75.4 fL (80.0-94.0); MEAN PLATELET VOLUME 8.3 fl (7.4-10.4); MONOCYTES % 11.8 % (2.0-8.0); PLATELET 391 x1000/uL (130-400); RED CELL DISTRIBUTION WIDTH 19.3 % (11.6-14.6)
[2020-12-20 08:00] VITALS: BP 104/69
[2020-12-20 12:00] VITALS: BP 117/72
[2020-12-20] MEDS ORDERED: SODIUM BICARBONATE 8.4% 1 MEQ/ML 50ML SYR IV NR (12:30)
[2020-12-20] MEDS ORDERED: DEXTROSE 50% WATER 50ML SYRINGE IV NR (12:30)
[2020-12-20] MEDS ORDERED: SODIUM POLYSTYRENE SULFONATE 15 G/60 ML BOT PO NR (12:30)
[2020-12-20] MEDS ORDERED: INSULIN REGULAR (HUMULIN R) UD 100 UNITS/ML SYR IV NR (12:30)
[2020-12-20 20:00] VITALS: BP 136/81
[2020-12-20] MEDS: FAT EMULSIONS 500 ML IV SCH (22:54)
[2020-12-20] MEDS: TOTAL PARENTERAL NUTRITION 2,000 ML IV SCH (22:56)
[2020-12-21 04:00] VITALS: BP 114/79
[2020-12-21] MEDS: HYDROMORPHONE HCL/PF 2MG/ML CPJ IV PRN ×2 (05:16→11:23)
[2020-12-21] MEDS: BLOOD SUGAR DIAGNOSTIC STRIP TEST SCH ×3 (05:42→12:00)
[2020-12-21 07:19] LABS: BASOPHILS % 0.4 % (0.0-2.0); EOSINOPHILS % 2.7 % (0.0-5.0); HEMOGLOBIN. 11.8 g/dL (14.0-18.0); LYMPHOCYTES % 25.5 % (20.0-50.0); MEAN CORPUSCULAR HEMOGLOBIN 25.5 pg (28.0-32.0); MEAN PLATELET VOLUME 8.4 fl (7.4-10.4); NEUTROPHILS % 61.4 % (40.0-76.0); PLATELET 390 x1000/uL (130-400); RED BLOOD CELL COUNT 4.61 mill/uL (4.7-6.1); RED CELL DISTRIBUTION WIDTH 18.7 % (11.6-14.6)
[2020-12-21 11:16] VITALS: BP 124/78
[2020-12-21 16:22] VITALS: BP 124/78
== END 2020-12-21 16:58 | disposition home health service (06) | DRG 206 ==
LOC: ER 15:26 → MICUSO 22:05 → 7EST 12-09 09:40
PROVIDERS: ADMIT Internal Medicine; ATTEND Internal Medicine
DX: T82.7XXA Infection and inflammatory reaction due to other cardiac and vascular devices, implants and grafts, initial encounter (principal); N17.0 Acute kidney failure with tubular necrosis; A41.9 Sepsis, unspecified organism; K63.2 Fistula of intestine; K91.2 Postsurgical malabsorption, not elsewhere classified; N17.9 Acute kidney failure, unspecified; T81.40XA Infection following a procedure, unspecified, initial encounter; T81.44XA Sepsis following a procedure, initial encounter; E87.5 Hyperkalemia; I11.9 Hypertensive heart disease without heart failure; K52.9 Noninfective gastroenteritis and colitis, unspecified; J44.9 Chronic obstructive pulmonary disease, unspecified; K76.0 Fatty (change of) liver, not elsewhere classified; Z96.649 Presence of unspecified artificial hip joint; D50.9 Iron deficiency anemia, unspecified; F41.9 Anxiety disorder, unspecified; Y83.8 Other surgical procedures as the cause of abnormal reaction of the patient, or of later complication, without mention of misadventure at the time of the procedure; Z82.49 Family history of ischemic heart disease and other diseases of the circulatory system; Z90.49 Acquired absence of other specified parts of digestive tract; Z93.3 Colostomy status; Z95.828 Presence of other vascular implants and grafts; Z91.041 Radiographic dye allergy status; Z91.018 Allergy to other foods; Z79.899 Other long term (current) drug therapy; Z86.718 Personal history of other venous thrombosis and embolism; Y92.89 Other specified places as the place of occurrence of the external cause; K86.1 Other chronic pancreatitis
CPT/HCPCS: 36415; 71045; 74176; 76770; 80048; 80053; 80061; 80202; 80305; 81003; 82270; 82550; 82575; 82607; 82728; 82746; 82962; 83540; 83550; 83605; 83735; 84100; 84132; 84145; 84443; 84478; 84484; 85025; 85044; 86140; 86705; 86709; 86803; 87045; 87340; 87493; 89055; 93005; 93970; 99285; C1893; J0692; J1170; J1200; J1815; J2405; J2543; J3370; J3475; J3490; J7030; J7040; J7060; Q9963

== ENCOUNTER 2020-12-26 13:40 | Inpatient (IN) | payer OTHER, MEDICAID ==
[~2020-12-26] VITALS: Ht 172.7 cm; Wt 74.8 kg
[~2020-12-26 13:40] MED LIST changes: +HYDR-4009 MT; +TRAM50TA94 MT
[2020-12-26] MEDS ORDERED: SODIUM CHLORIDE 0.9% 1000ML BAG (SEPSIS BOLUS) IV ONE (15:00)
[2020-12-26] MEDS ORDERED: MORPHINE SULFATE 4 MG/ML CPJ (NOT FOR IM USE) IV NR (15:00)
[2020-12-26] MEDS: SODIUM CHLORIDE 0.9% 2,250 ML IV SCH ×2 (15:19→15:20)
[2020-12-26] MEDS ORDERED: HYDROMORPHONE HCL/PF 2MG/ML CPJ IV NR (15:30)
[2020-12-26 15:33] LABS: CLARITY URINE CLOUDY (CLEAR); COLOR URINE DARK YELLOW (YELLOW); KETONES URINE TRACE (NEGATIVE); LEUKOCYTE ESTERASE URINE TRACE (NEGATIVE); NITRITE URINE NEGATIVE (NEGATIVE); OCCULT BLOOD URINE 1+ (NEGATIVE); PH URINE 5.5 (4.5-8.0); PROTEIN URINE 2+ (NEGATIVE); SPECIFIC GRAVITY URINE 1.019 (1.005-1.030)
[2020-12-26 15:35] LABS: HEMATOCRIT. 34.8 % (42.0-52.0); HEMOGLOBIN. 11.3 g/dL (14.0-18.0); MEAN CORPUSCULAR HEMOGLOBIN 24.2 pg (28.0-32.0); MEAN CORPUSCULAR VOLUME 74.4 fL (80.0-94.0); MEAN PLATELET VOLUME 8.6 fl (7.4-10.4); PLATELET 224 x1000/uL (130-400); RED BLOOD CELL COUNT 4.68 mill/uL (4.7-6.1); RED CELL DISTRIBUTION WIDTH 18.3 % (11.6-14.6)
[2020-12-26 15:40] LABS: CHLORIDE 101 mEq/L (98-107)
[2020-12-26 15:43] LABS: INR 1.1; PROTHROMBIN TIME 11.6 sec (9.6-11.0)
[2020-12-26 15:45] LABS: ETHANOL BLOOD < 10 mg/dL
[2020-12-26 15:50] LABS: CREATINE KINASE 26 IU/L (39-308)
[2020-12-26 16:16] LABS: *AMPHETAMINES SCREEN URINE NEGATIVE (NEGATIVE); *BARBITURATES SCREEN URINE NEGATIVE (NEGATIVE); *BENZODIAZEPINES SCREEN URINE NEGATIVE (NEGATIVE)
[2020-12-26 16:17] LABS: *COCAINE SCREEN URINE NEGATIVE (NEGATIVE); CANNABINOID URINE SCREEN PRESUMTIVE POSITIVE (NEGATIVE); METHADONE URINE SCREEN NEGATIVE (NEGATIVE); OPIATES URINE SCREEN PRESUMTIVE POSITIVE (NEGATIVE); PHENCYCLIDINE URINE SCREEN NEGATIVE (NEGATIVE)
[2020-12-26] MEDS ORDERED: METRONIDAZOLE 500 MG PREMIX 100 ML IV ONE (16:45)
[2020-12-26] MEDS ORDERED: KCL 20MEQ/100ML PREMIX 100 ML IV NR (18:30)
[2020-12-26] MEDS: CEFEPIME 1,000 MG in DEXTROSE 5% WATER 50 ML IV SCH (18:37)
[2020-12-26 18:44] LABS: PLATELET ESTIMATE NORMAL
[2020-12-27] MEDS: CEFEPIME 1,000 MG in DEXTROSE 5% WATER 50 ML IV SCH ×3 (05:30→20:56)
[2020-12-27 08:00] VITALS: BP 114/74
[2020-12-27] MEDS ORDERED: HYDROCODONE/ACETAMINOPHEN 5/325MG TABLET PO PRN (10:00)
[2020-12-27] MEDS ORDERED: ONDANSETRON HCL 4MG/2ML INJ IV PRN (11:45)
[2020-12-27] MEDS ORDERED: NALOXONE HCL 0.4MG/ML VIAL IV PRN ×2 (11:45→19:45)
[2020-12-27 12:00] VITALS: BP 126/69
[2020-12-27] MEDS: METRONIDAZOLE 500 MG PREMIX 100 ML IV SCH ×2 (12:31→18:30)
[2020-12-27] MEDS: HYDROCODONE/ACETAMINOPHEN 10/325MG TABLET PO PRN ×2 (12:32→23:02)
[2020-12-27] MEDS: DEXT 5%/0.45% NACL 1000ML 1,000 ML IV SCH ×2 (12:38→20:56)
[2020-12-27 14:47] VITALS: BP 126/69
[2020-12-27 16:00] VITALS: BP 100/65
[2020-12-27 20:00] VITALS: BP 115/75
[2020-12-28] VITALS: BP 118/69
[2020-12-28] MEDS: METRONIDAZOLE 500 MG PREMIX 100 ML IV SCH ×2 (01:21→10:58)
[2020-12-28 04:00] VITALS: BP 112/51
[2020-12-28] MEDS: DEXT 5%/0.45% NACL 1000ML 1,000 ML IV SCH ×2 (05:44→17:09)
[2020-12-28 06:45] LABS: BASOPHILS % 0.6 % (0.0-2.0); EOSINOPHILS % 1.3 % (0.0-5.0); HEMATOCRIT. 28.8 % (42.0-52.0); HEMOGLOBIN. 9.2 g/dL (14.0-18.0); LYMPHOCYTES % 19.2 % (20.0-50.0); MEAN PLATELET VOLUME 9.1 fl (7.4-10.4); MONOCYTES % 13.4 % (2.0-8.0); NEUTROPHILS % 65.5 % (40.0-76.0); PLATELET 187 x1000/uL (130-400); RED BLOOD CELL COUNT 3.84 mill/uL (4.7-6.1); RED CELL DISTRIBUTION WIDTH 18.8 % (11.6-14.6)
[2020-12-28 07:11] LABS: VITAMIN B12 SERUM 802 pg/mL (211-911)
[2020-12-28 07:18] LABS: FOLIC ACID (FOLATE) SERUM > 20.00 ng/mL (>5.38)
[2020-12-28 08:00] VITALS: BP 107/71
[2020-12-28] MEDS ORDERED: PANTOPRAZOLE SODIUM 40 MG/VIAL IV SCH (09:00)
[2020-12-28] MEDS ORDERED: POTASSIUM CHLORIDE 20MEQ TABLET SR PO NR ×2 (09:00→10:15)
[2020-12-28] MEDS ORDERED: POTASSIUM CHLORIDE INJ 40 MEQ in DEXT 5% WATER 250 ML IV NR (09:30)
[2020-12-28] MEDS: CEFEPIME 1,000 MG in DEXTROSE 5% WATER 50 ML IV SCH (09:40)
[2020-12-28 12:00] VITALS: BP 107/73
[2020-12-28] MEDS ORDERED: CIPR-263 MT ×2 (12:19)
[2020-12-28] MEDS ORDERED: METR-167 MT ×2 (12:19)
[2020-12-28 15:56] VITALS: BP 134/75
[2020-12-28 16:00] VITALS: BP_SYST 134; BP_SYST 154; BP_DIAS 75; BP_DIAS 78
== END 2020-12-28 17:50 | disposition home or self-care (01) | DRG 720 ==
LOC: ER 13:40 → MICUSO 17:54 → EDBEDREQSVC 18:07 → EDBEDREQ 18:07 → 8WST 12-27 07:18
PROVIDERS: ADMIT Internal Medicine; ATTEND Internal Medicine
DX: A41.9 Sepsis, unspecified organism (principal); N17.0 Acute kidney failure with tubular necrosis; E43 Unspecified severe protein-calorie malnutrition; K63.2 Fistula of intestine; K91.2 Postsurgical malabsorption, not elsewhere classified; R18.8 Other ascites; J90 Pleural effusion, not elsewhere classified; I11.9 Hypertensive heart disease without heart failure; K76.0 Fatty (change of) liver, not elsewhere classified; E87.1 Hypo-osmolality and hyponatremia; D50.9 Iron deficiency anemia, unspecified; F12.90 Cannabis use, unspecified, uncomplicated; E87.6 Hypokalemia; F41.9 Anxiety disorder, unspecified; M19.90 Unspecified osteoarthritis, unspecified site; M32.9 Systemic lupus erythematosus, unspecified; Z20.822 Contact with and (suspected) exposure to COVID-19; R16.2 Hepatomegaly with splenomegaly, not elsewhere classified; I86.8 Varicose veins of other specified sites; F11.90 Opioid use, unspecified, uncomplicated; Z96.649 Presence of unspecified artificial hip joint; N28.1 Cyst of kidney, acquired; Z76.5 Malingerer [conscious simulation]; Z95.828 Presence of other vascular implants and grafts; Z91.041 Radiographic dye allergy status; Z91.018 Allergy to other foods; Z68.25 Body mass index [BMI] 25.0-25.9, adult; Z90.49 Acquired absence of other specified parts of digestive tract; Z82.49 Family history of ischemic heart disease and other diseases of the circulatory system; Z86.718 Personal history of other venous thrombosis and embolism; E87.8 Other disorders of electrolyte and fluid balance, not elsewhere classified; A04.5 Campylobacter enteritis
CPT/HCPCS: 36415; 71045; 74176; 80048; 80053; 80305; 80320; 81003; 82247; 82248; 82550; 82607; 82728; 82746; 83540; 83550; 83605; 84075; 84145; 84484; 85025; 85044; 86140; 87015; 87045; 87426; 87427; 87449; 89055; 93005; 99291; C1893; C9113; J0692; J1170; J3480; J3490; J7060; G0480

== ENCOUNTER 2022-06-08 18:02 | Emergency (ER) | payer MEDICAID, OTHER ==
[~2022-06-08] VITALS: Ht 185.4 cm; Wt 63.0 kg
[2022-06-08 18:56] VITALS: BP 129/70
[2022-06-08] MEDS ORDERED: IBUPROFEN 600MG TABLET PO ONE (22:30)
== END 2022-06-08 23:00 | disposition home or self-care (01) ==
LOC: ER 18:02
DX: T82.49XA Other complication of vascular dialysis catheter, initial encounter (principal); X58.XXXA Exposure to other specified factors, initial encounter; F41.9 Anxiety disorder, unspecified; K59.00 Constipation, unspecified; I20.9 Angina pectoris, unspecified; Z90.49 Acquired absence of other specified parts of digestive tract; Z79.899 Other long term (current) drug therapy
CPT/HCPCS: 99281

== ENCOUNTER 2022-06-09 08:10 | Emergency (ER) | payer MEDICAID, OTHER ==
[2022-06-09] VITALS (13 sets, daily range): BP systolic 103–114; BP diastolic 58–66
[~2022-06-09] VITALS: Ht 185.4 cm; Wt 63.0 kg
[2022-06-09 11:48] LABS: BASOPHILS % 0.3 % (0.0-2.0); EOSINOPHILS % 1.1 % (0.0-5.0); HEMATOCRIT. 32.7 % (42.0-52.0); HEMOGLOBIN. 10.5 g/dL (14.0-18.0); LYMPHOCYTES % 19.3 % (20.0-50.0); MEAN CORPUSCULAR HEMOGLOBIN 26.4 pg (28.0-32.0); MEAN CORPUSCULAR VOLUME 82.2 fL (80.0-94.0); MEAN PLATELET VOLUME 7.7 fl (7.4-10.4); MONOCYTES % 6.3 % (2.0-8.0); PLATELET 232 x1000/uL (130-400); RED BLOOD CELL COUNT 3.98 mill/uL (4.7-6.1); RED CELL DISTRIBUTION WIDTH 16.2 % (11.6-14.6)
[2022-06-09 12:36] LABS: CHLORIDE 110 mEq/L (98-107)
[2022-06-09] MEDS ORDERED: LIDOCAINE HCL 1% 10 MG/ML 10ML VIAL ONE (12:44)
[2022-06-09] MEDS ORDERED: FENTANYL CITRATE/PF 50MCG/ML 2ML VIAL ONE ×2 (12:44→13:43)
[2022-06-09] MEDS ORDERED: MIDAZOLAM HCL 2 MG/2 ML VIAL ONE (12:44)
[2022-06-09] MEDS ORDERED: CEFAZOLIN 1000MG PREMIX 50 ML IV ONE ×2 (12:44→14:00)
[2022-06-09 12:54] LABS: PARTIAL THROMBOPLASTIN TIME 29.3 sec (23.4-31.0); PROTHROMBIN TIME 11.1 sec (9.6-11.0)
[2022-06-09] MEDS ORDERED: MIDAZOLAM HCL 2 MG/2 ML VIAL IV ONE (14:00)
[2022-06-09] MEDS ORDERED: FENTANYL CITRATE/PF 50MCG/ML 2ML VIAL IV ONE (14:00)
== END 2022-06-09 14:30 | disposition home or self-care (01) ==
LOC: ER 08:17
DX: T82.514A Breakdown (mechanical) of infusion catheter, initial encounter (principal); E87.6 Hypokalemia; Z20.822 Contact with and (suspected) exposure to COVID-19
CPT/HCPCS: 36415; 36558; 36569; 77001; 80053; 85025; 85610; 85730; 87426; 96365; 96375; 99284; C1725; C1751; C1769; C1893; C9803; J0690; J1642; J2250; J3010; J3490; Z7610; 99152; 99153; G0500

== ENCOUNTER 2022-10-26 17:36 | Emergency (ER) | payer OTHER ==
[~2022-10-26] VITALS: Ht 185.4 cm; Wt 64.0 kg
[2022-10-26 17:44] VITALS: BP 117/65
[2022-10-26 18:13] LABS: CLARITY URINE CLEAR (CLEAR); COLOR URINE DARK YELLOW (YELLOW); KETONES URINE TRACE (NEGATIVE); LEUKOCYTE ESTERASE URINE TRACE (NEGATIVE); NITRITE URINE NEGATIVE (NEGATIVE); OCCULT BLOOD URINE 3+ (NEGATIVE); PH URINE 5.5 (4.5-8.0); PROTEIN URINE 2+ (NEGATIVE); SPECIFIC GRAVITY URINE 1.024 (1.005-1.030)
[2022-10-26 20:59] LABS: BASOPHILS % 0.5 % (0.0-2.0); HEMATOCRIT. 36.9 % (42.0-52.0); LYMPHOCYTES % 28.3 % (20.0-50.0); MEAN CORPUSCULAR HEMOGLOBIN 27.1 pg (28.0-32.0); MEAN CORPUSCULAR VOLUME 83.5 fL (80.0-94.0); MEAN PLATELET VOLUME 7.7 fl (7.4-10.4); MONOCYTES % 7.5 % (2.0-8.0); NEUTROPHILS % 61.7 % (40.0-76.0); PLATELET 191 x1000/uL (130-400); RED BLOOD CELL COUNT 4.42 mill/uL (4.7-6.1); RED CELL DISTRIBUTION WIDTH 16.7 % (11.6-14.6)
[2022-10-26 21:08] LABS: CHLORIDE 106 mEq/L (98-107)
== END 2022-10-26 21:39 | disposition home or self-care (01) ==
LOC: ER 17:36
DX: N32.9 Bladder disorder, unspecified (principal); Z90.49 Acquired absence of other specified parts of digestive tract; Z98.890 Other specified postprocedural states; Z79.899 Other long term (current) drug therapy
CPT/HCPCS: 36415; 80053; 81003; 85025; 99283

== ENCOUNTER 2023-02-23 13:08 | Emergency (ER) | payer MEDICAID, OTHER ==
[~2023-02-23] VITALS: Ht 185.4 cm; Wt 64.0 kg
[2023-02-23 13:17] VITALS: O2SAT 98
[2023-02-23 13:25] VITALS: PULSE 80
== END 2023-02-23 14:26 | disposition left against medical advice (07) ==
LOC: ER 13:19
DX: Z95.9 Presence of cardiac and vascular implant and graft, unspecified (principal); Z91.041 Radiographic dye allergy status; Z91.018 Allergy to other foods; Z90.49 Acquired absence of other specified parts of digestive tract; Z98.890 Other specified postprocedural states
CPT/HCPCS: 99281

== ENCOUNTER 2023-02-26 11:08 | Emergency (ER) | payer MEDICAID, OTHER ==
[~2023-02-26] VITALS: Ht 185.4 cm; Wt 81.6 kg
[2023-02-26] VITALS (13 sets, daily range): BP systolic 108–125; BP diastolic 75–87; PULSE 71–95; RESP 12–16; TEMP 98.7; O2SAT 99
[2023-02-26 11:46] LABS: BASOPHILS % 0.3 % (0.0-2.0); EOSINOPHILS % 0.7 % (0.0-5.0); HEMATOCRIT. 47.7 % (42.0-52.0); HEMOGLOBIN. 15.3 g/dL (14.0-18.0); LYMPHOCYTES % 21.9 % (20.0-50.0); MEAN CORPUSCULAR HEMOGLOBIN 27.3 pg (28.0-32.0); MEAN CORPUSCULAR HGB CONC 32.1 g/dL (31.0-37.0); MONOCYTES % 8.3 % (2.0-8.0); NEUTROPHILS % 68.8 % (40.0-76.0); PLATELET 249 x1000/uL (130-400); RED CELL DISTRIBUTION WIDTH 16.3 % (11.6-14.6); WHITE BLOOD COUNT 8.7 x1000/uL (4.5-11.0)
[2023-02-26 11:59] LABS: CHLORIDE 106 mEq/L (98-107); INDEX HEMOLYSI 2 (1-3); INDEX ICTERIC 1 (1-4); INDEX LIPEMIC 1 (1-3); POTASSIUM 3.9 mEq/L (3.5-5.1); SODIUM 135 mEq/L (136-145)
[2023-02-26 12:06] LABS: ALANINE AMINOTRANSFERASE 38 IU/L (13-61); ALBUMIN 3.8 g/dL (3.4-5.0); ASPARTATE AMINOTRANSFERASE 29 IU/L (15-37); BILIRUBIN TOTAL 0.7 mg/dL (0.1-1.0); CALCIUM 9.6 mg/dL (8.5-10.1); CARBON DIOXIDE 20 mEq/L (21-32); CREATININE 1.5 mg/dL (0.6-1.3); GLUCOSE 114 mg/dL (70-105); PROTEIN TOTAL 10.1 g/dL (6.0-8.3); UREA NITROGEN BLOOD 38 mg/dL (7-21)
[2023-02-26] MEDS ORDERED: ONDANSETRON HCL 4MG/2ML INJ IV ONE (12:45)
[2023-02-26] MEDS ORDERED: SODIUM CHLORIDE 0.9% 1,000 ML IV ONE (12:45)
[2023-02-26] MEDS ORDERED: CEFAZOLIN 1000MG PREMIX 50 ML IV ONE (13:15)
[2023-02-26] MEDS ORDERED: LIDOCAINE HCL 1% 10 MG/ML 10ML VIAL ONE (13:15)
[2023-02-26] MEDS ORDERED: CEFAZOLIN 1000MG PREMIX 50 ML IV NR (13:15)
[2023-02-26] MEDS ORDERED: LIDOCAINE HCL/EPINEPHRINE 1%-EPI 1:100,000 20 ML VIAL ONE (13:16)
[2023-02-26 13:17] LABS: INR 1.1; PROTHROMBIN TIME 11.5 sec (9.6-11.0)
[2023-02-26] MEDS ORDERED: FENTANYL CITRATE/PF 50MCG/ML 2ML VIAL ONE (13:50)
[2023-02-26] MEDS ORDERED: FENTANYL CITRATE/PF 50MCG/ML 2ML VIAL IV ONE (14:30)
== END 2023-02-26 18:14 | disposition left against medical advice (07) ==
LOC: ER 12:09
DX: R53.1 Weakness (principal); K90.829 Short bowel syndrome, unspecified; K86.1 Other chronic pancreatitis; F41.9 Anxiety disorder, unspecified; Z98.890 Other specified postprocedural states; Z90.49 Acquired absence of other specified parts of digestive tract; Z91.040 Latex allergy status; Z91.018 Allergy to other foods
CPT/HCPCS: 80053; 83690; 85025; 85610; 86850; 86900; 86901; 36415; 36561; 77001; 96361; 96365; 96375; 99285; J3010; J0690; J1642; J3490 ×2; J7030; Z7610; C1751; 99152; 99153; G0500

== ENCOUNTER 2024-01-12 19:27 | Emergency (ER) | payer MEDICAID, OTHER ==
[~2024-01-12] VITALS: Ht 185.4 cm; Wt 80.0 kg
[2024-01-12 19:53] VITALS: TEMP 36.72516; O2SAT 97
[2024-01-12 19:55] VITALS: BP 115/78; PULSE 89; RESP 18; TEMP 98.1; O2SAT 99
== END 2024-01-12 22:02 | disposition left against medical advice (07) ==
LOC: ER 19:27
DX: R50.9 Fever, unspecified (principal); Z53.21 Procedure and treatment not carried out due to patient leaving prior to being seen by health care provider

== ENCOUNTER 2024-07-31 17:59 | Emergency (ER) | payer MEDICAID, OTHER ==
[~2024-07-31] VITALS: Ht 188 cm; Wt 59.0 kg
[2024-07-31 18:01] VITALS: O2SAT 100
[2024-07-31 19:13] LABS: BASOPHILS % 0.3 % (0.0-2.0); DIFFERENTIAL COMMENT 0; EOSINOPHILS % 0.4 % (0.0-5.0); HEMATOCRIT. 24.7 % (42.0-52.0); HEMOGLOBIN. 7.8 g/dL (14.0-18.0); LYMPHOCYTES % 9.2 % (20.0-50.0); MEAN CORPUSCULAR HEMOGLOBIN 25.3 pg (28.0-32.0); MEAN CORPUSCULAR HGB CONC 31.8 g/dL (31.0-37.0); MEAN CORPUSCULAR VOLUME 79.6 fL (80.0-94.0); MEAN PLATELET VOLUME 7.8 fl (7.4-10.4); NEUTROPHILS % 82.1 % (40.0-76.0); PLATELET 213 x1000/uL (130-400); RED CELL DISTRIBUTION WIDTH 17.8 % (11.6-14.6); WHITE BLOOD COUNT 8.1 x1000/uL (4.5-11.0)
[2024-07-31 19:16] LABS: CHLORIDE 106 mEq/L (98-107); POTASSIUM 3.8 mEq/L (3.5-5.1); SODIUM 136 mEq/L (136-145)
[2024-07-31 19:17] LABS: CARBON DIOXIDE 21 mEq/L (21-32)
[2024-07-31 19:18] LABS: CALCIUM 8.7 mg/dL (8.7-10.4)
[2024-07-31 19:22] LABS: CREATININE 1.5 mg/dL (0.6-1.3); GLUCOSE 76 mg/dL (70-105); UREA NITROGEN BLOOD 32 mg/dL (9-23)
[2024-07-31 19:27] LABS: ETHANOL BLOOD < 10 mg/dL (<10)
[2024-07-31] MEDS: SODIUM CHLORIDE 0.9% 1,000 ML IV ONE (19:57)
[2024-07-31] MEDS: MORPHINE SULFATE 4 MG/ML INJ (FOR IV/IM USE) IV ONE (20:24)
[2024-07-31] MEDS: KETOROLAC 30MG/ML VIAL IV ONE (20:30)
[2024-07-31] MEDS: ACETAMINOPHEN 1000MG/100ML 100 ML IV ONE (21:31)
[2024-07-31 22:11] VITALS: BP 104/68; PULSE 90; RESP 20; TEMP 37.2; O2SAT 100
== END 2024-07-31 23:25 | disposition left against medical advice (07) ==
LOC: ER 17:59
DX: R10.30 Lower abdominal pain, unspecified (principal); R11.2 Nausea with vomiting, unspecified; D64.9 Anemia, unspecified; I50.9 Heart failure, unspecified; Z79.01 Long term (current) use of anticoagulants; Z87.891 Personal history of nicotine dependence; Z90.49 Acquired absence of other specified parts of digestive tract; Z91.041 Radiographic dye allergy status
CPT/HCPCS: 80048; 80320; 83605; 83690; 85025; 36415; 71045; 74176; 96361; 96374; 99285; J1885; J7030; G0480; J0131